=== PATIENT | male | born 1975 | race Two or more races ===

== ENCOUNTER 2016-10-29 10:31 | Observation (INO) | payer MEDICAID, OTHER ==
[~2016-10-29] VITALS: Ht 172.7 cm; Wt 86.2 kg
[2016-10-29 12:26] LABS: Albumin 4.4 g/dL (3.4-5.0); Alkaline Phosphatase 72 U/L (45-117); Anion Gap 18 (5-15); Aspartate Aminotransferase 20 U/L (15-37); BUN/Creatinine Ratio 20.8; Bilirubin, Total 1.3 mg/dL (0.2-1.0); Blood Urea Nitrogen 21 mg/dL (7-18); Calcium 9.4 mg/dL (8.5-10.1); Carbon Dioxide 19 mmol/L (21-32); Chloride 108 mmol/L (98-107); GFR African American 105 mL/min; GFR Non-African American 87 mL/min; Glucose 95 mg/dL (74-106); Potassium 3.1 mmol/L (3.5-5.1); Sodium 145 mmol/L (136-145); Total Protein 7.6 g/dL (6.4-8.2)
[2016-10-29 12:27] LABS: Basophils # (auto) 0 uL; Basophils % (auto) 0.5 % (0.0-2.0); Eosinophils # (auto) 0 uL; Eosinophils % (auto) 0.1 % (0.0-7.0); Hematocrit 48.9 % (41.0-53.0); Hemoglobin 16.5 g/dL (13.5-17.5); Lymphocytes # (auto) 0.9 uL; Lymphocytes % (auto) 13.9 % (10.0-50.0); Mean Corpuscular Hemoglobin 28.7 pg (28.0-32.0); Mean Corpuscular Hgb Conc. 33.7 g/dL (32.0-36.0); Mean Corpuscular Volume 85.2 fL (80.0-100.0); Monocytes # (auto) 0.3 uL; Monocytes % (auto) 4.9 % (0.0-12.0); Neutrophils # (auto) 5.1 uL; Neutrophils % (auto) 80.6 % (37.0-80.0); Platelet Count (auto) 226 10^3/uL (140-450); Red Cell Distribution Width 12.9 % (11.6-16.0); White Blood Cell 6.3 10^3/uL (4.4-10.8)
[2016-10-29 12:50] LABS: Acetaminophen < 2.0 ug/mL (10-30); Salicylate < 1.7 mg/dL (2.8-20.0)
[2016-10-29] MEDS ORDERED: POTASSIUM CHL 20 Meq TABLET PO ONE (13:15)
[2016-10-29 13:36] LABS: Urine RBC None Seen /hpf (0 - 3)
[2016-10-29 14:02] LABS: Urine Bilirubin Negative (Negative); Urine Blood Negative /uL (Negative); Urine Color Yellow (Yellow); Urine Glucose Normal (Normal); Urine Mucus FEW (None Seen); Urine Nitrite Negative (Negative); Urine Sperm PRESENT /hpf (None Seen); Urine Squamous Epithelial Cell FEW /hpf (<5); Urine pH 6.5 (5.0-8.0)
[2016-10-29 14:10] LABS: Urine Ketone 3+ (Negative)
[2016-10-29] MEDS ORDERED: SODIUM CHLORIDE 0.9% 1,000 ML IV ONE (15:45)
[2016-11-01 09:20] VITALS: BP 110/65
== END 2016-11-01 20:27 | disposition home or self-care (01) | DRG 756 ==
LOC: ER 10:31 → UNDOADMOB 10:32 → OVERFLOW 10:32 → ER 11-01 20:27 → UNDODISOB 11-01 20:27
PROVIDERS: ADMIT Emergency Medicine; ATTEND Emergency Medicine
DX: R45.851 Suicidal ideations (principal); F15.10 Other stimulant abuse, uncomplicated
CPT/HCPCS: 36415; 71010; 80053; 80320; 80329; 81001; 85025; 96360; 99285; G0378; G0434; J7030; A4565